=== PATIENT | male | born 1960 | race Hispanic/Latino ===

== ENCOUNTER 2019-01-07 02:54 | Inpatient (IN) | payer OTHER ==
[2019-01-07] MEDS ORDERED: VITAMIN B-1 100 MG, FOLVITE 1 MG, INFUVITE 10 ML in NACL 0.9% 1000 ML 1,000 ML IV ONE (03:25)
[2019-01-07] MEDS ORDERED: NACL 0.9% 1000 ML 1,000 ML IV ONE (03:25)
[2019-01-07] MEDS ORDERED: ATIVAN IV STA (03:26)
[2019-01-07] MEDS ORDERED: ATIVAN IV PRN ×3 (03:31)
--- NOTE | 2019-01-07 03:31 | Emergency Department Report ---
ED Alcohol HPI - General Chief Complaint: Weakness Stated Complaint: FEVER, NAUSEAAND VOMITING Time Seen by Provider: 01/07/19 03:25 Source: patient, family, EMS (ems notes not available at time of chart dictation), RN notes reviewed Mode of arrival: Stretcher Limitations: No Limitations - History of Present Illness Initial Comments: This is a 58-year-old gentleman. The patient is not known to this provider previously. He is visiting from [place]. He has a past medical history of hypertension and alcohol dependence. He presents to the emergency room with a complaint of palpitations, weakness, nausea, tremulousness. These symptoms have been going on for one week. They're getting worse. He reports this feels similar to prior episodes of alcohol withdrawal. He reports being hospitalized for alcohol withdrawal in the past, and reports abnormalities" my sodium and magnesium." He denies headache, neck pain, chest pain, shortness of breath, hallucinations, homicidality, suicidality. He has burning epigastric discomfort, and abdominal discomfort, cramping. He reports his symptoms got worse over the past 24 hours. He reports his last alcoholic drink was approximately one day ago. MD Complaint: alcohol dependence -: days(s) (1) Chronic Alcohol Use: Yes Previous Visits for Alcohol Intoxication?: No Recent Trauma: No Associated Symptoms: nausea, vomiting, diaphoresis, tremors - Related Data Home Medications Medication Instructions Recorded Confirmed Last Taken Lisinopril [Zestril TAB] 40 mg PO QDAY 01/07/19 01/07/19 01/06/19 10:00 Metoprolol [Lopressor TAB] 50 mg PO DAILY 01/07/19 01/07/19 01/06/19 16:00 Allergies Allergy/AdvReac Type Severity Reaction Status Date / Time No Known Allergies Allergy Verified 01/07/19 03:39 ED Review of Systems ROS: Stated complaint: FEVER, NAUSEAAND VOMITING Other details as noted in HPI Constitutional: malaise, weakness Eyes: denies: eye discharge ENT: denies: throat pain Respiratory: denies: cough Cardiovascular: palpitations Gastrointestinal: nausea Genitourinary: denies: dysuria Musculoskeletal: arthralgia Skin: denies: lesions Neurological: weakness Psychiatric: anxiety. denies: homicidal thoughts, suicidal thoughts ED Past Medical Hx - Past Medical History Previous Medical History?: Yes Hx Hypertension: Yes - Surgical History Past Surgical History?: No - Social History Smoking Status: Never Smoker Substance Use Type: Alcohol - Medications Home Medications: Home Medications Medication Instructions Recorded Confirmed Last Taken Type Lisinopril [Zestril TAB] 40 mg PO QDAY 01/07/19 01/07/19 01/06/19 10:00 History Metoprolol [Lopressor TAB] 50 mg PO DAILY 01/07/19 01/07/19 01/06/19 16:00 History ED Physical Exam - General Limitations: No Limitations General appearance: alert, anxious, in distress - Head Head exam: Present: atraumatic, normocephalic - Eye Eye exam: Present: normal appearance, EOMI, other (visual acuity intact to finger counting, color perception, reading at a close distance). Absent: n ystagmus - ENT ENT exam: Present: normal orophraynx, normal external ear exam, other (tongue fasciculations noted) - Neck Neck exam: Present: normal inspection, full ROM. Absent: tenderness, meningismus - Respiratory Respiratory exam: Present: normal lung sounds bilaterally. Absent: respiratory distress - Cardiovascular Cardiovascular Exam: Present: normal rhythm, tachycardia, normal heart sounds. Absent: systolic murmur, diastolic murmur, rubs, gallop - GI/Abdominal GI/Abdominal exam: Present: soft. Absent: distended, tenderness, guarding, rebound, rigid, pulsatile mass - Rectal Rectal exam: Present: deferred - Extremities Exam Extremities exam: Present: normal inspection (upper extremity tremors noted), full ROM, other (2+ pulses noted in the bilateral upper, lower extremities. Compartments soft. No long bony tenderness. The pelvis is stable.). Absent: pedal edema, joint swelling, calf tenderness - Back Exam Back exam: Present: normal inspection, full ROM. Absent: tenderness, CVA tenderness (R), paraspinal tenderness, vertebral tenderness - Neurological Exam Neurological exam: Present: alert, other (Extraocular movements intact. Tongue midline. No facial droop. Facial sensation intact to light touch in the V1, V2, V3 distribution bilaterally. 5 and 5 strength in 4 extremities.. Sensation is intact to light touch in 4 extremities.). Absent: motor sensory deficit - Psychiatric Psychiatric exam: Present: anxious. Absent: homicidal ideation, suicidal ideation - Skin Skin exam: Present: warm, dry, intact, normal color. Absent: rash ED Course Vital Signs 01/07/19 01/07/19 01/07/19 03:04 03:15 03:19 Temperature 98.5 F Pulse Rate 112 H 107 H 108 H Respiratory 21 22 18 Rate Blood Pressure 161/98 Blood Pressure 161/98 [Left] O2 Sat by Pulse 99 99 99 Oximetry 01/07/19 01/07/19 01/07/19 03:30 03:45 04:00 Temperature Pulse Rate 105 H 103 H 98 H Respiratory 24 21 16 Rate Blood Pressure 151/96 151/96 133/90 Blood Pressure [Left] O2 Sat by Pulse 99 99 94 Oximetry 01/07/19 01/07/19 01/07/19 04:15 04:30 04:45 Temperature Pulse Rate 102 H 104 H 96 H Respiratory 12 13 15 Rate Blood Pressure 143/98 135/99 135/99 Blood Pressure [Left] O2 Sat by Pulse 97 98 99 Oximetry 01/07/19 01/07/19 01/07/19 05:00 05:15 05:31 Temperature Pulse Rate 96 H 93 H 99 H Respiratory 14 15 16 Rate Blood Pressure 159/102 157/104 162/123 Blood Pressure [Left] O2 Sat by Pulse 98 99 98 Oximetry 01/07/19 01/07/19 01/07/19 05:45 06:00 06:15 Temperature Pulse Rate 99 H 96 H 97 H Respiratory 15 15 13 Rate Blood Pressure 159/97 141/88 141/88 Blood Pressure [Left] O2 Sat by Pulse 98 98 97 Oximetry 01/07/19 06:30 Temperature 98.5 F Pulse Rate 94 H Respiratory 15 Rate Blood Pressure 130/84 Blood Pressure 161/98 [Left] O2 Sat by Pulse 95 Oximetry - Reevaluation(s) Reevaluation #1: 01/07/19 03:41 Differential diagnosis, including not limited to: Alcohol withdrawal, dehydration, pancreatitis, electrolyte derangement Assessment and plan: 58-year-old gentleman with tachycardia, tremors, tongue fasciculations, known history of alcohol dependence, reported history of alcohol withdrawal, highly suspicious for acute alcohol withdrawal syndrome. This may be an emergent condition, and I recommended IV fluids, benzodiazepines as needed, screening laboratory studies, and admission to the hospital. Patient and family member verbalize understanding to this. Given magnitude of his symptoms, patient in my opinion is not suitable for outpatient treatment for this particular condition. Reevaluation #2: 04/11/19 04:59 Laboratory studies confirm dehydration, hyponatremia, hypomagnesemia. I have gone back to reevaluate the patient and discussed his findings with himself and his . They are amenable to hospitalization/admission. The Hospital physician, Dr. Grady has accepted the patient to the medical service for alcohol withdrawal, hyponatremia, hypomagnesemia. ED Medical Decision Making - Lab Data Result diagrams: 01/07/19 03:34 01/07/19 06:59 Vital Signs 01/07/19 03:19 Temperature 98.5 F Pulse Rate 108 H Respiratory 18 Rate Blood Pressure 161/98 [Left] O2 Sat by Pulse 99 Oximetry - EKG Data -: EKG Interpreted by Nm Rate: tachycardia - EKG Data When compared to previous EKG there are: previous EKG unavailable 01/07/19 04:33 Sinus tachycardia, left axis deviation, left anterior fascicular block, QTC prolonged, atrial enlargement, motion artifact, not having chest pain, abnormal EKG, no prior for comparison, this is not consistent with ST elevation myocardial infarction. - Radiology Data Radiology results: report reviewed, image reviewed X-ray of the chest is negative for acute disease Critical Care Time: Yes Critical care time in (mins) excluding proc time.: 35 Critical care attestation.: If time is entered above; I have spent that time in minutes in the direct care of this critically ill patient, excluding procedure time. ED Disposition Clinical Impression: Alcohol withdrawal, Hyponatremia, Hypomagnesemia Disposition: OP ADMIT IP TO THIS HOSP Is pt being admited?: Yes Condition: Good
[2019-01-07] MEDS ORDERED: D5/0.45NS 1,000 ML IV SCH (04:00)
--- NOTE | 2019-01-07 04:08 | XRay Report ---
PROCEDURE: XR CHEST 1V AP TECHNIQUE: A portable upright view the chest was submitted. HISTORY: Alcohol Intoxication COMPARISONS: None FINDINGS: The heart size and mediastinum appear normal. The lungs are clear. Pleural fluid is not seen. The bon es soft tissues do not show any acute changes. IMPRESSION: No acute cardiopulmonary process.. This document is electronically signed by Mundo Lane MD., January 07 2019 04:07:04 AM ET
[2019-01-07 04:14] LABS: Basophils # (Auto) 0.1 K/mm3 (0.0-0.1); Basophils % (Auto) 0.5 % (0.0-1.8); Eosinophils % (Auto) 0.2 % (0.0-4.3); Hematocrit 41.4 % (35.5-45.6); Hemoglobin 14.4 gm/dl (11.8-15.2); Lymphocytes # (Auto) 1.1 K/mm3 (1.2-5.4); Lymphocytes % (Auto) 9.4 % (13.4-35.0); Mean Corpuscular HGB Conc 35 % (32-34); Mean Corpuscular Volume 94 fl (84-94); Monocytes # (Auto) 1.3 K/mm3 (0.0-0.8); Monocytes % (Auto) 11.3 % (0.0-7.3); Platelet Count 277 K/mm3 (140-440); Red Blood Count 4.41 M/mm3 (3.65-5.03); Red Cell Distribution Width 13.2 % (13.2-15.2)
[2019-01-07 04:33] LABS: Alanine Aminotransferase 23 units/L (7-56); Albumin 4.4 g/dL (3.9-5); BUN/Creatinine Ratio 12; Blood Urea Nitrogen 7 mg/dL (9-20); Calcium 9.5 mg/dL (8.4-10.2); Hemolysis Index 7
[2019-01-07 04:41] LABS: INR 0.95 (0.87-1.13)
[2019-01-07 04:42] LABS: Partial Thromboplastin Time 26.7 Sec. (24.2-36.6)
[2019-01-07] MEDS ORDERED: MAGNESIUM SULFATE 2GM/50ML 2 GM/50 ML BAG IV ONE (04:43)
[2019-01-07] MEDS ORDERED: TYLENOL PO PRN (05:23)
[2019-01-07] MEDS ORDERED: ZOFRAN IV PRN (05:23)
[2019-01-07] MEDS ORDERED: HEPARIN SUB-Q SCH (05:30)
[2019-01-07] MEDS ORDERED: HEPARIN ONE (06:27)
[2019-01-07] MEDS ORDERED: ATIVAN ONE (06:28)
[2019-01-07 06:58] LABS: Bilirubin,Urine NEG (Negative); Blood,Urine NEG (Negative); Color,Urine Straw (Yellow); Protein,Urine <15 mg/dL mg/dL (Negative); RBC,Urine < 1.0 /HPF (0.0-6.0); Urobilinogen,Urine < 2.0 mg/dL (<2.0)
[2019-01-07 06:59] LABS: Mucus,Urine Rare /HPF; WBC,Urine < 1.0 /HPF (0.0-6.0)
[2019-01-07 07:01] LABS: Creatinine,Urine 17.3 mg/dL (0.1-20.0)
--- NOTE | 2019-01-07 07:30 | History and Physical Report ---
CHIEF COMPLAINT: Weakness. Other complaints include nausea, vomiting, and tremor. HISTORY OF PRESENTING ILLNESS: The patient is a 58-year-old male, who is visiting from [place], who was brought to the Emergency Room because of weakness, nausea, vomiting, palpitation, and tremor going on for one week and the patient's spouse said that the symptoms have been getting worse and the patient reported that these symptoms were similar to the ones he had due to alcohol withdrawal and said that he was hospitalized in the past because of these. He has no history of chest pain, no history of fever or chills, and no history of shortness of breath or headache. There is also no history of hallucinations or suicidal intention, patient admitted to drinking alcohol in the last few days PAST MEDICAL HISTORY: Includes hypertension, alcohol abuse, and alcohol withdrawal syndrome. PAST SURGICAL HISTORY: Unremarkable. FAMILY HISTORY: Noncontributory. SOCIAL HISTORY: The patient drinks alcohol regularly, does not smoke, does not use illicit drugs. MEDICATIONS: The patient's home medications are not known at this time. ALLERGIES: There are no known drug allergies. REVIEW OF SYSTEMS: CONSTITUTIONAL: There is no fever, no chills, no diaphoresis. HEENT: There is no headache or sore throat. CARDIOVASCULAR SYSTEM: There is no chest pain, but there are palpitations and there is no orthopnea. RESPIRATORY SYSTEM: There is no shortness of breath or cough. GASTROINTESTINAL SYSTEM: There is nausea and vomiting. No abdominal pain, no diarrhea or constipation. NEUROLOGICAL SYSTEM: There is weakness and no altered mental status and no dizziness. MUSCULOSKELETAL SYSTEM: There is no joint pain or swelling. DERMATOLOGICAL SYSTEM: There is no skin rash or itching. GENITOURINARY SYSTEM: There is no dysuria, hematuria, or flank pain. Rest of system review is normal. PHYSICAL EXAMINATION: GENERAL: At the time of exam, the patient was found to be alert and oriented x 3, and not in acute distress. VITAL SIGNS: At the initial time of presentation showed temperature of 98.5 degrees Fahrenheit, pulse of 108, respirations 18, blood pressure 161/98, O2 sat of 99% on room air. HEENT: Showed pupils to be equal, round, react to light and accommodation. Extraocular muscles were intact. NECK: Supple with no JVD or carotid bruit. CARDIOVASCULAR SYSTEM: Showed normal first and second heart sounds with no gallops or murmur. RESPIRATORY SYSTEM: Showed good air entry on both sides of the lung with no abnormal breath sounds. GASTROINTESTINAL SYSTEM: Showed abdomen to be full, soft, nontender with no organomegaly or rigidity. NEUROLOGICAL: Showed no focal deficits. MUSCULOSKELETAL SYSTEM: Showed no joint swelling or tenderness. DERMATOLOGIC SYSTEM: Showed no skin rash. GENITOURINARY SYSTEM: Showing no costovertebral angle tenderness. PERTINENT LABORATORY AND IMAGING STUDIES: The patient had chest x-ray done that came back unremarkable. Lab results; the patient's CBC shows slightly elevated white count of 11,200 with normal hemoglobin, normal hematocrit and with normal platelets, and CBC differential showed elevated segmented neutrophil count of 78.6% with coagulation studies being normal. The patient's chemistry showed low sodium level of 120 with normal potassium and low chloride level of 77.7, with low CO2 of 18, low BUN of 7, low creatinine of 0.6, and low magnesium level of 1.20. The patient's toxicology screen was unremarkable. DIAGNOSES: 1. Alcohol withdrawal syndrome. 2. Low magnesium. 3. Hyponatremia or low sodium. PLAN OF CARE: 1. The patient will be admitted to telemetry. 2. The patient will continue CIWA protocol started in the Emergency Room. 3. The patient will continue the IV banana bag made up of 1 liter of normal saline mixed with thiamine, folic acid, magnesium sulfate, and multivitamin. The patient will have this treatment of banana bag once daily. 4. The patient will be on Tylenol 650 mg by mouth every 4 hours for fever and headache and will be on IV lorazepam per CIWA protocol. 5. The patient will be on IV Zofran 4 mg every 8 hours for nausea and vomiting. 6. The patient will have magnesium level and basic metabolic panel checked to monitor the magnesium and sodium levels. 7. The patient's DVT prophylaxis will be through heparin 5000 units subcutaneous q. 12 hours. JOB# [id number] OCN/NTS STEVED
[2019-01-07 07:33] LABS: BUN/Creatinine Ratio 9; Blood Urea Nitrogen 6 mg/dL (9-20); Calcium 8.2 mg/dL (8.4-10.2); Hemolysis Index 2
[2019-01-07] MEDS ORDERED: APRESOLINE IV PRN (11:40)
[2019-01-07] MEDS ORDERED: ATIVAN PO PRN (11:40)
[2019-01-07] MEDS ORDERED: NACL 0.9% 1000 ML 1,000 ML ONE (12:36)
[2019-01-07] MEDS: D5NS 1,000 ML IV SCH ×2 (12:50→22:03)
[2019-01-07] MEDS: NORVASC PO SCH (13:31)
[2019-01-07] MEDS ORDERED: LOVENOX SUB-Q SCH (22:00)
[2019-01-08 06:03] LABS: BUN/Creatinine Ratio 11; Blood Urea Nitrogen 8 mg/dL (9-20); Calcium 8.4 mg/dL (8.4-10.2); Hemolysis Index 3
[2019-01-08 08:24] VITALS: BP 151/88
[2019-01-08] MEDS ORDERED: LOPRESSOR PO SCH (10:00)
[2019-01-08] MEDS ORDERED: ZESTRIL PO SCH (10:00)
[2019-01-08] MEDS: NORVASC PO SCH (10:17)
--- NOTE | 2019-01-08 11:54 | Discharge Summary ---
Providers - Providers Date of Admission: 01/07/19 11:25 Date of discharge: 01/08/19 Attending physician: KANA LEE MD Primary care physician: MADELEINE LOW MD Hospitalization Disposition: DC-01 TO HOME OR SELFCARE Time spent for discharge: 33 Core Measure Documentation - Palliative Care Palliative Care/ Comfort Measures: Not Applicable - Core Measures Any of the following diagnoses?: none - VTE Discharge Requirements Deep Vein Thrombosis/Pulmonary Embolism Present on Admission: No Has pt received <5 days of overlap therapy or INR<2.0: No Anticoagulant overlap therapy prescribed at discharge: No Contraindication No Overlap Therapy order at DC: Not Indicated - Acute OR Discharge Requirements Aspirin at discharge: No Reason for no aspirin on DC: Patient refusal PRAKASH/ARB for LVSD if EF <40%: Yes Beta gama at discharge: Yes Statin for LDL = or >100 mg/dl on DC: Yes - Heart Failure Discharge Requirements PRAKASH/ARB for LVSD if EF <40%: Yes Beta gama at discharge: Yes - Stroke Discharge Requirements Statin for LDL = or >70 mg/dl on DC: Yes Anticoag for atrial fib/atrial flutter: Not Applicable Reason for no anticoag for AF/F on DC: Not Indicated Antithrombotic for ischemic stroke: No Reason for no antithrombotic on DC: Not Indicated Exam - Physical Exam Narrative exam: 58-year-old white male with history of hypertension and alcohol abuse visiting from [place] but ER with complaints of weakness, nausea, vomiting, palpitations, and tremor for a week with symptoms progressively worsening. Patient states that the last time he felt similar symptoms is, when he was going through alcohol withdrawal. Patient was on his way to [facility] for vacation with his , when his symptoms became unbearable. At the time of my examination patient is awake, alert and oriented 3 sitting up in bed. His is at the bedside. On exam he has mild upper extremity tremors. He states that he feels that his symptoms have improved and he is ready for discharge. Discharge instructions discussed with patient and his . They both have verbalized understanding and are in agreement with discharge planing. - Constitutional Vitals: Temp Pulse Resp BP Pulse Ox 98.2 F 69 20 151/88 99 01/08/19 08:22 01/08/19 08:22 01/08/19 08:22 01/08/19 08:22 01/08/19 08:22 General appearance: Present: no acute distress - EENT Eyes: Present: PERRL, EOM intact ENT: hearing intact - Neck Neck: Present: supple, normal ROM - Respiratory Respiratory effort: normal Respiratory: bilateral: CTA - Cardiovascular Rhythm: regular Heart Sounds: Present: S1 & S2 - Extremities Extremities: pulses intact, pulses symmetrical, No edema Peripheral Pulses: within normal limits - Abdominal General gastrointestinal: Present: soft, non-tender Male genitourinary: Present: deferred - Rectal Rectal Exam: deferred - Integumentary Integumentary: Present: warm, dry - Musculoskeletal Musculoskeletal: generalized weakness - Psychiatric Psychiatric: cooperative - Neurologic Neurologic: CNII-XII intact (slight tremor in upper extremities) Plan Activity: advance as tolerated Weight Bearing Status: Weight Bear as Tolerated Diet: regular Follow up with: CULLEN CHASE MD [Staff Physician] - 3-5 Days Prescriptions: chlordiazePOXIDE [Librium] 25 mg PO DAILY 8 Days #28 capsule
== END 2019-01-08 16:30 | disposition home or self-care (01) | DRG 641 ==
LOC: ED 02:54 → 4A 05:01 → OBSVTOIN 11:25
PROVIDERS: ADMIT Internal Medicine; ATTEND Internal Medicine
DX: E87.1 Hypo-osmolality and hyponatremia (principal); F10.239 Alcohol dependence with withdrawal, unspecified; I10 Essential (primary) hypertension; E83.42 Hypomagnesemia; Z79.899 Other long term (current) drug therapy
CPT/HCPCS: 36415; 71045; 80048; 80053; 80320; 81001; 82570; 83690; 83735; 84100; 84300; 84443; 85025; 85610; 85730; 93005; 93010; G0378; G0480; J0360; J1644; J1650; J2060; J3411; J3475; J7030; J7042